=== PATIENT | female | born 1970 | race Caucasian/White ===

== ENCOUNTER → 2016-12-17 | Outpatient (CLI) | payer OTHER ==
[~2016-12-17] MED LIST: GADOBUTROL 10 ML VIAL IVP ONE
--- NOTE | 2016-12-17 10:43 | MR ---
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 Technique: MRI was performed of the brain using a 3 Beth MRI system. Sagittal, axial, and coronal im aging was obtained. Images were obtained pre- and postintravenous contrast, 10 mL Gadavist. High-reso lution coronal and axial imaging was obtained of the internal auditory canals pre- and postintravenou s contrast. Findings: No evidence of intracranial mass, hemorrhage, or infarct. No evidence of abnormal enhancem ent. The ventricles, sulci, and cisterns appear appropriate for age. No evidence of an extra-axial fl uid collection. No evidence of abnormal enhancement. The pituitary and pineal regions are unremarkabl e. Craniocervical junction is unremarkable. Paranasal sinuses are clear. The internal auditory canals are well visualized and symmetric. The seventh and eighth cranial nerves are unremarkable without evidence of mass or abnormal enhancement. Cerebellopontine angle region is unremarkable. Impression: 1. Unremarkable MRI of the brain with contrast. 2. Normal MRI of the internal auditory canals.
== END ==
LOC: FIMAGING 09:15
PROVIDERS: ATTEND Physician Assistant
DX: H90.42 Sensorineural hearing loss, unilateral, left ear, with unrestricted hearing on the contralateral side (principal)
CPT/HCPCS: A9585

== ENCOUNTER → 2017-08-30 | Outpatient (CLI) | payer OTHER | LOC: FIMAGING 08:19 | PROVIDERS: ATTEND Family Medicine | DX: Z12.31 Encounter for screening mammogram for malignant neoplasm of breast (principal); Z80.3 Family history of malignant neoplasm of breast | CPT/HCPCS: G0202 ==

== ENCOUNTER → 2018-10-17 | Outpatient (CLI) | payer BC | LOC: FIMAGING 12:58 | PROVIDERS: ATTEND Family Medicine | DX: Z12.31 Encounter for screening mammogram for malignant neoplasm of breast (principal) ==